=== PATIENT | female | born 1960 | race Caucasian/White ===

== ENCOUNTER 2016-09-04 16:11 | Emergency (ER) | payer OTHER ==
[2016-09-04 16:28] VITALS: TEMP 98.7
[2016-09-04] MEDS ORDERED: ONDANSETRON HCL 4 MG/2 ML SOL IV ONE (16:33)
[2016-09-04 16:41] LABS: BASOPHILS % (AUTO) 1 % (0-3); EOSINOPHILS % (AUTO) 2 % (0-9); HEMATOCRIT 40 % (35-47); MEAN CORPUSCULAR HGB CONC 34.6 gm/dl (32.0-36.0); MEAN CORPUSCULAR VOLUME 90 fL (81-99); MONOCYTES % (AUTO) 6.2 % (0-12); NEUTROPHILS % (AUTO) 56.8 % (37-80)
[2016-09-04] MEDS ORDERED: SODIUM CHLORIDE 0.9% 1000 ML SOL IV SCH (16:45)
[2016-09-04 17:01] LABS: CALCIUM 9.5 mg/dl (8.5-10.1); GLOM FILT RATE 73 mL/min (>60); POTASSIUM 3.4 mMol/L (3.5-5.1); SODIUM 139 mMol/L (136-145)
[2016-09-04] MEDS ORDERED: POTASSIUM CHLORIDE 10 MEQ TER PO ONE (17:14)
[2016-09-04] MEDS ORDERED: POTASSIUM CHLORIDE 10 MEQ TER ONE (17:56)
[2016-09-04] MEDS ORDERED: ONDANSETRON HCL 4 MG/2 ML SOL ONE (17:56)
[2016-09-04 18:52] VITALS: BP 92/49; PULSE 87; RESP 18; O2SAT 97
== END 2016-09-04 18:40 | disposition home or self-care (01) ==
LOC: ED 16:11
DX: R55 Syncope and collapse (principal); E87.6 Hypokalemia
CPT/HCPCS: 99285 ×3; 84484; 85025; 93005; J2405; 80048

== ENCOUNTER 2016-11-29 16:27 | Emergency (ER) | payer OTHER ==
[2016-11-29 16:34] VITALS: BP 112/74; PULSE 78; RESP 20; TEMP 96.8; O2SAT 100
== END 2016-11-29 17:20 | disposition home or self-care (01) ==
LOC: ED 16:27
DX: S90.122A Contusion of left lesser toe(s) without damage to nail, initial encounter (principal)
CPT/HCPCS: 73660; 99282